=== PATIENT | male | born 1965 | race Caucasian/White ===

== ENCOUNTER 2020-09-15 09:50 | Outpatient (RCR) | payer BC, SELFPAY ==
[2020-09-15] MEDS: COVID-19 VACC, MRNA(PFIZER)/PF 30 MCG/0.3 ML SYRINGE IM (07:28)
[2020-10-06] MEDS: COVID-19 VACC, MRNA(PFIZER)/PF 30 MCG/0.3 ML SYRINGE IM (07:26)
== END 2020-09-15 23:59 ==
LOC: IMMUN 09:50
PROVIDERS: PCP Family Medicine; Visit Provider Family Medicine
DX: Z23 Encounter for immunization (principal)
CPT/HCPCS: 0001A; 0002A; 91300